=== PATIENT | male | born 1965 | race Caucasian/White ===

== ENCOUNTER 2017-09-01 15:04 | Emergency (ER) | payer MEDICAID, OTHER ==
[~2017-09-01] VITALS: Ht 172.7 cm; Wt 99.2 kg
[2017-09-01 15:18] VITALS: Ht 172.7 cm; Wt 99.2 kg
[2017-09-01] MEDS ORDERED: DIPHTH/TET/ACEL PERTUSS (ADULT) 0.5 ML VIAL IM* ONE (17:30)
[2017-09-01 17:42] LABS: BASOPHIL # 0.1 10^3/ul (0.0-0.1); BASOPHILS % 0.5 % (0.0-2.0); EOSINOPHILS # 0.4 10^3/ul (0.0-0.5); EOSINOPHILS % 3.3 % (0.0-7.0); HEMATOCRIT 46.2 % (42.0-52.0); HEMOGLOBIN 15.6 g/dl (14.0-18.0); LYMPHOCYTES # 2.1 10^3/ul (0.8-2.9); LYMPHOCYTES % 19.5 % (15.0-51.0); MEAN CORPUSCULAR HEMOGLOBIN 30.9 pg (29.0-33.0); MEAN CORPUSCULAR HGB CONC 33.8 g/dl (32.0-37.0); MEAN CORPUSCULAR VOLUME 91.5 fl (82.0-101.0); MEAN PLATELET VOLUME 9.9 fl (7.4-10.4); MONOCYTE # 0.8 10^3/ul (0.3-0.9); MONOCYTES % 7.2 % (0.0-11.0); NEUTROPHIL # 7.6 10^3/ul (1.6-7.5); NEUTROPHILS % 69.1 % (39.0-77.0); PLATELET COUNT 245 10^3/UL (140-415); RED BLOOD COUNT 5.05 10^6/ul (4.70-6.10); RED CELL DISTRIBUTION WIDTH 13.9 % (11.5-14.5); WHITE BLOOD COUNT 10.9 10^3/ul (4.8-10.8)
[2017-09-01 17:46] LABS: ADD UMIC NO; UR ASCORBIC ACID NEGATIVE (NEGATIVE); UR BILIRUBIN (Dip) NEGATIVE (NEGATIVE); UR BLOOD (Dip) NEGATIVE (NEGATIVE); UR CLARITY CLEAR (CLEAR); UR COLOR YELLOW (YELLOW); UR GLUCOSE (Dip) NEGATIVE (NEGATIVE); UR KETONES (Dip) NEGATIVE (NEGATIVE); UR LEUKOCYTE ESTERASE (Dip) NEGATIVE Leu/ul (NEGATIVE); UR NITRITE (Dip) NEGATIVE (NEGATIVE); UR SPECIFIC GRAVITY (Dip) 1.016 (1.003-1.030); UR TOTAL PROTEIN (Dip) NEGATIVE (NEGATIVE); UR UROBILINOGEN (Dip) 2+ mg/dL (NEGATIVE)
[2017-09-01] MEDS ORDERED: NICARDipine HCL 30 MG CAPSULE PO ONE (18:00)
[2017-09-01 18:05] LABS: ALANINE AMINOTRANSFERASE 47 IU/L (13-69); ALBUMIN 4.4 g/dl (3.3-4.9); ALKALINE PHOSPHATASE 94 IU/L (42-121); ANION GAP 15 (8-16); ASPARTATE AMINO TRANSFERASE 34 IU/L (15-46); BILIRUBIN,INDIRECT 2.3 mg/dl (0-1.1); BILIRUBIN,TOTAL 2.3 mg/dl (0.2-1.3); BLOOD UREA NITROGEN 16 mg/dl (7-20); CALCIUM 8.7 mg/dl (8.4-10.2); CARBON DIOXIDE 29 mmol/L (21-31); CHLORIDE 103 mmol/L (97-110); CREATININE 1.02 mg/dl (0.61-1.24); GLUCOSE 107 mg/dl (70-220); SODIUM 144 mmol/L (135-144); TOTAL PROTEIN 8.4 g/dl (6.1-8.1)
--- NOTE | 2017-09-01 18:06 | RADRPT ---
PROCEDURE: CT Brain without contrast. CLINICAL INDICATION: Pain, headache TECHNIQUE: Routine CT scan of the brain was performed on a high resolution multi detector scanner without intravenous contrast. One or more of the following dose reduction techniques were used: Auto mated exposure control; Adjustment of the mA and/or kV according to patient size; Use of iterative r econstruction technique. CTDI = 41 mGy. DLP = 720 mGy-cm. DICOM images are available. COMPARISON: No prior relevant examinations are available for comparison. FINDINGS: Hemorrhage: No evidence of intracranial hemorrhage. Acute ischemic changes: No evidence of acute ischemic changes. Mass effect: None. Parenchymal volume: Within normal limits for age. Ventricular system: Concordant with parenchymal volume. Chronic changes: Parenchymal attenuation is within normal limits. Atherosclerotic calcifications of the cavernous portions of both internal carotid arteries are present. Extracranial soft tissues: Left periorbital soft tissue swelling. Calvarium: No fractures. Paranasal sinuses: Partial opacification of the bilateral ethmoid air cells. Mastoid air cells: Visualized mastoid air cells are clear. IMPRESSION: No acute intracranial abnormalities. Normal appearance of the brain parenchyma. Please see report of concurrent CT scan of the maxillofacial structures. RPTAT: AADD .Rubio Mathews MD, MD Date Time Electronically viewed and signed by .Rubio Mathews MD, on 09/01/2017 18:05 .B/
[2017-09-01 18:13] LABS: ETHANOL < 10.0 mg/dl
--- NOTE | 2017-09-01 18:13 | RADRPT ---
PROCEDURE: CT scan facial bones without contrast. CLINICAL INDICATION: Facial pain TECHNIQUE: Routine CT scan of the maxillofacial structures was performed on a high resolution [facility] idetector scanner without intravenous contrast. One or more of the following dose reduction techniqu es were used: Automated exposure control; Adjustment of the mA and/or kV according to patient size; Use of iterative reconstruction technique. CTDI = 29 mGy. DLP = 670 mGy-cm. DICOM images are availab le. COMPARISON: No prior examinations are available for comparison. FINDINGS: Extracranial soft tissues: Left-sided periorbital soft tissue swelling is present. Minimally displac ed fracture of the left nasal bones. Orbits: The osseous orbits are normal. Sinuses: Mild opacification of the bilateral ethmoid air cells. Complete opacification of the left m axillary sinus and outflow tract with evidence of mild chronic osteitis. Possible nondisplaced angul ation fracture of the posterior wall of the left maxillary sinus. Skull base: No fractures. 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 Suprahyoid neck: Within normal limits. Lymph nodes: No evidence of abnormal morphology or attenuation by CT criteria. Cervical spine: Partially visualized structures appear normal. IMPRESSION: Left-sided periorbital soft tissue swelling is present. Minimally displaced fracture of the left lenny al bones. Possible nondisplaced angulation fracture of the posterior wall of the left maxillary sinus. Complete opacification of the left maxillary sinus and outflow tract with evidence of mild chronic o steitis. 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 RPTAT: AADD .Rubio Mathews MD, Date Time Electronically viewed and signed by .Rubio Mathews MD, on 09/01/2017 18:13 .B/
[2017-09-01 18:15] LABS: POTASSIUM 2.9 mmol/L (3.5-5.1)
[2017-09-01] MEDS ORDERED: POTASSIUM CHLORIDE (SR) 20 MEQ TAB PO STA (18:57)
[2017-09-01] MEDS ORDERED: HYDROCODONE/APAP (10/325) TAB PO ONE (19:00)
[2017-09-01] MEDS ORDERED: CEPH-443 PO (19:09)
[2017-09-01] MEDS ORDERED: HYDR-906 PO (19:09)
[2017-09-01] MEDS ORDERED: CEFAZOLIN 1 GM INJ IM ONE (19:30)
[2017-09-01 19:43] LABS: BENZODIAZEPINES Negative (NEGATIVE); CANNABINOIDS Negative (NEGATIVE); COCAINE Negative (NEGATIVE); OPIATES Negative (NEGATIVE)
[2017-09-01 19:52] VITALS: BP 141/95; PULSE 93; RESP 16
[2017-09-01 20:04] LABS: BARBITURATES Negative (NEGATIVE)
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
== END 2017-09-01 20:20 | disposition home or self-care (01) ==
LOC: E/R 15:04
DX: S02.40DA Maxillary fracture, left side, initial encounter for closed fracture (principal); E87.6 Hypokalemia; I10 Essential (primary) hypertension; S00.81XA Abrasion of other part of head, initial encounter; R93.0 Abnormal findings on diagnostic imaging of skull and head, not elsewhere classified; Y04.0XXA Assault by unarmed brawl or fight, initial encounter; Z23 Encounter for immunization
CPT/HCPCS: 70450; 70486; 80053; 80306; 80307; 81003; 85025; 90471; 90715; 96372; J0690; Z7502; Z7610